=== PATIENT | female | born 1990 | race Caucasian/White ===

== ENCOUNTER → 2018-05-24 18:08 | Outpatient (CLI) | payer SELFPAY | PROVIDERS: Referring Provider Otolaryngology Otolaryngology/Facial Plastic Surgery; Visit Provider Otolaryngology Otolaryngology/Facial Plastic Surgery | DX: J02.9 Acute pharyngitis, unspecified (principal); J32.9 Chronic sinusitis, unspecified | CPT/HCPCS: 87070; 87077 ==